=== PATIENT | male | born 1955 | race Two or more races ===

== ENCOUNTER 2022-03-21 06:12 | Inpatient (IN) | payer MEDICARE ==
[2022-03-18 11:49] LABS: Basophils # (auto) 0.1 10 ^3/uL (0-0.2); Basophils % (auto) 1.5 % (0.0-2.0); Eosinophils # (auto) 0.1 10 ^3/uL (0-0.8); Eosinophils % (auto) 1.7 % (0.0-7.0); Hemoglobin 12.4 g/dL (13.5-17.5); Lymphocytes # (auto) 1.6 10 ^3/uL (0.4-5.4); Lymphocytes % (auto) 28.7 % (10.0-50.0); Mean Corpuscular Hemoglobin 29.5 pg (28.0-32.0); Mean Corpuscular Hgb Conc. 32.6 g/dL (32.0-36.0); Mean Corpuscular Volume 90.5 fL (80.0-100.0); Monocytes # (auto) 0.3 10 ^3/uL (0-1.3); Monocytes % (auto) 5.3 % (0.0-12.0); Neutrophils # (auto) 3.5 10 ^3/uL (1.6-8.6); Neutrophils % (auto) 62.8 % (37.0-80.0); Red Cell Distribution Width 15.2 % (11.8-14.3); White Blood Cell 5.6 10^3/uL (4.4-10.8)
[2022-03-18 12:11] LABS: INR 0.98 (0.9-1.15); Partial Thromboplastin Time 26.1 sec (24.6-33.4)
[2022-03-18 12:22] LABS: Albumin 3.3 g/dL (3.4-5.0); Calcium 8.9 mg/dL (8.5-10.1); Potassium 4.8 mmol/L (3.5-5.1)
[2022-03-18 12:25] LABS: Bilirubin, Total 0.4 mg/dL (0.2-1.0); Total Protein 6.7 g/dL (6.4-8.2)
[2022-03-18 14:34] LABS: Urine Specific Gravity 1.009 (1.001-1.035)
[2022-03-18 14:35] LABS: Urine Blood Negative /uL (Negative)
[~2022-03-21] VITALS: Ht 170.2 cm; Wt 78.3 kg
[~2022-03-21 06:12] MED LIST: CYCL-839 PO; GABA400C PO; METH2.5T PO; TAM04C PO; VIBE75TA PO; [UNRECOGNIZED DRUG - CODE] PO
[2022-03-21] MEDS ORDERED: CIPROFLOXACIN 400MG/200ML 200 ML IV ONE (07:11)
[2022-03-21] MEDS ORDERED: MIDAZOLAM HCL 2MG/2ML 2ml VIAL (1mg/ml) ONE (07:30)
[2022-03-21] MEDS ORDERED: fentaNYL CITRATE 100 MCG/2 ML VL ONE (07:30)
[2022-03-21] MEDS ORDERED: ROCURONIUM 10MG/ML 10ML VIAL IV ONE (07:31)
[2022-03-21] MEDS ORDERED: HYDROmorphone HCL 2 MG/ML VL/or syr IV PRN ×2 (08:15)
[2022-03-21] MEDS ORDERED: ONDANSETRON HCL 4 MG/2 ML VIAL IV PRN (08:15)
[2022-03-21] MEDS ORDERED: PROPOFOL 10 MG/ML 20 ML IV ONE ×2 (08:24→08:58)
[2022-03-21] MEDS ORDERED: ONDANSETRON HCL 4 MG/2 ML VIAL ONE (08:25)
[2022-03-21] MEDS ORDERED: LIDOCAINE 2% (LOCAL ANESTH.) PF 5ml SDV ONE (08:25)
[2022-03-21] MEDS ORDERED: GLYCOPYRROLATE 0.2 MG/ML 1ML VIAL ONE (08:58)
[2022-03-21] MEDS ORDERED: NEOSTIGMINE 1 MG/ML INJ (10mg/10ML VIAL) ONE (08:59)
[2022-03-21] MEDS ORDERED: BELLADONNA ALKAL/OPIUM (16.2/30MG) RECT SUPP PR ONE (10:59)
[2022-03-21] MEDS ORDERED: NITROGLYCERIN 0.4 MG SL TAB SL PRN (11:45)
[2022-03-21] MEDS ORDERED: MORPHINE SULFATE INJ 2 MG/ml SYRG IV PRN (11:45)
[2022-03-21] MEDS ORDERED: LABETALOL HCL 5 MG/ML 4ML SYRINGE IV ONE (14:15)
[2022-03-21] MEDS: DOCUSATE SOD 100 MG CAP PO SCH (21:53)
[2022-03-21 22:25] VITALS: BP 140/83
[2022-03-22 05:00] VITALS: BP 106/72
[2022-03-22] MEDS: DOCUSATE SOD 100 MG CAP PO SCH ×2 (08:52→23:02)
[2022-03-22 09:00] VITALS: BP 93/55
[2022-03-22] MEDS: BELLADONNA ALKAL/OPIUM (16.2/30MG) RECT SUPP PR SCH (10:00)
[2022-03-22] MEDS ORDERED: HYDROcodone-ACET 10/325MG TAB PO ONE (10:30)
[2022-03-22 12:35] VITALS: BP 113/67
[2022-03-22 17:00] VITALS: BP 108/70
[2022-03-22 22:00] VITALS: BP 119/79
[2022-03-23 05:00] VITALS: BP 113/82
[2022-03-23 09:00] VITALS: BP 101/58
[2022-03-23] MEDS: BELLADONNA ALKAL/OPIUM (16.2/30MG) RECT SUPP PR SCH (10:00)
[2022-03-23] MEDS: DOCUSATE SOD 100 MG CAP PO SCH (10:10)
[2022-03-23 13:00] VITALS: BP 97/60
== END 2022-03-23 16:00 | disposition home or self-care (01) | DRG 714 ==
LOC: SUR 06:12 → OVERFLOW 11:47 → WEST WING 20:09 → OBSVTOIN 03-23 10:54
PROVIDERS: ADMIT Urology; ATTEND Urology
PROC: 0VB07ZZ Excision of Prostate, Via Natural or Artificial Opening (ICD-10-PCS; principal; 2022-03-21 07:31)
DX: N40.0 Benign prostatic hyperplasia without lower urinary tract symptoms (principal); Z20.822 Contact with and (suspected) exposure to COVID-19
CPT/HCPCS: 36415; 80053; 81001; 85025; 85610; 85730; 87086; G0378; J2001; J2250; J2405; J2704; J3490

== ENCOUNTER → 2022-04-06 | Outpatient (CLI) | payer MEDICARE ==
[~2022-04-06] MED LIST changes: -TAM04C PO; -[UNRECOGNIZED DRUG - CODE] PO
[2022-04-06 09:31] LABS: Urine Specific Gravity 1.016 (1.001-1.035)
[2022-04-06 09:32] LABS: Urine Blood 3+ /uL (Negative)
== END | disposition home or self-care (01) ==
LOC: LAB 08:31
PROVIDERS: ATTEND Nurse Practitioner Family
DX: N39.0 Urinary tract infection, site not specified (principal)
CPT/HCPCS: 81001; 87086